=== PATIENT | male | born 1970 | race Asian ===

== ENCOUNTER 2024-03-13 04:31 | Day surgery (SDC) | payer OTHER ==
[2024-03-10 17:08] VITALS: BMI 30.5
[2024-03-13 07:02] VITALS: RESP 16
[2024-03-13] MEDS ORDERED: DEXTROSE 5%-0.45% SALINE 1,000 ML IV SCH (08:45)
[2024-03-13] MEDS ORDERED: BACITRACIN ZINC 15 GM TUBE TOPICAL OINTMENT ONE (08:51)
[2024-03-13] MEDS ORDERED: BUPIVACAINE HCL/PF 0.5% (5MG/ML) 10 ML VIAL ONE (08:51)
[2024-03-13] MEDS ORDERED: MIDAZOLAM HCL 2 MG/2 ML SINGLE DOSE VIAL ONE (08:53)
[2024-03-13] MEDS ORDERED: PROPOFOL 20 ML ONE (08:53)
[2024-03-13] MEDS ORDERED: LIDOCAINE HCL/PF 2% SDV 5ML VIAL ONE (08:53)
[2024-03-13] MEDS ORDERED: FENTANYL CITRATE/PF 50 MCG/ML VIAL ONE (08:53)
[2024-03-13] MEDS ORDERED: ceFAZolin SODIUM 1 GM VIAL ONE (09:09)
[2024-03-13] MEDS ORDERED: DEXAMETHASONE SOD PHOSPHATE 4 MG/1 ML VIAL ONE (09:09)
[2024-03-13] MEDS: ceFAZolin SODIUM 1 GM VIAL IVPB ONE (09:10)
[2024-03-13] MEDS: BUPIVACAINE HCL/PF 0.5% (5 MG/ML) 30 ML VIAL IJ ONE (09:18)
[2024-03-13] MEDS ORDERED: KETOROLAC TROMETHAMINE 30 MG/1 ML VIAL ONE (09:35)
[2024-03-13] MEDS ORDERED: ONDANSETRON 4 MG/2 ML VIAL ONE (09:35)
[2024-03-13] MEDS: BACITRACIN ZINC 15 GM TUBE TOPICAL OINTMENT TP ONE (09:35)
[2024-03-13] MEDS ORDERED: PROMETHAZINE HCL 25 MG/1 ML VIAL IVPB PRN (09:49)
[2024-03-13] MEDS ORDERED: oxyCODONE HCL 5 MG TABLET PO PRN ×2 (09:49)
[2024-03-13] MEDS ORDERED: ONDANSETRON 4 MG/2 ML VIAL IVPUSH PRN (09:49)
[2024-03-13] MEDS ORDERED: ACETAMINOPHEN INJECTION 100 ML IVPB ONE (09:52)
[2024-03-13] MEDS: ACETAMINOPHEN 1000 MG/100 ML BAG IVPB ONE (10:00)
[2024-03-13] MEDS ORDERED: LACTATED RINGERS SOLUTION 1,000 ML IV SCH (10:00)
[2024-03-13 10:38] VITALS: BP 130/86; PULSE 60; TEMP 97.6
== END 2024-03-13 11:22 | disposition home or self-care (01) ==
LOC: JASU-SURG 04:31
PROVIDERS: ATTEND Urology
PROC: 0VTTXZZ Resection of Prepuce, External Approach (ICD-10-PCS; principal; 2024-03-13 08:30)
DX: N47.1 Phimosis (principal); N48.1 Balanitis
CPT/HCPCS: 88304-TC; 94760; J0131